=== PATIENT | male | born 1990 ===

== ENCOUNTER 2018-04-30 09:43 | Emergency (ER) | payer SELFPAY ==
[2018-04-30 09:44] VITALS: BMI 25.0
[2018-04-30 10:00] VITALS: RESP 18; O2SAT 98
[2018-04-30] MEDS ORDERED: Bacitracin 500 Units/gm Oint Foilpak UD ONE (10:40)
--- NOTE | 2018-04-30 10:52 | ED PDOC ---
Arrival/HPI - General Chief Complaint: Abnormal Skin Integrity Time Seen by Provider: 04/30/18 10:45 Historian: Patient - History of Present Illness Narrative History of Present Illness (Text): 04/30/18 10:49 28yo male who present to ED with scalp laceration. States he sustained the laceration when the edge of his car [place] hit his head this morning. denies LOc, nausea, vomiting, visual changes, any other complaint. Past Medical History - Provider Review Nursing Documentation Reviewed: Yes - Infectious Disease Hx of Infectious Diseases: None - Psychiatric Hx Depression: No Hx Emotional Abuse: No Hx Physical Abuse: No Hx Substance Use: Yes (CANNABIS) - Anesthesia Hx Anesthesia: No - Suicidal Assessment Feels Threatened In Home Enviroment: No Family/Social History - Physician Review Nursing Documentation Reviewed: Yes Family/Social History: Unknown Family HX Smoking Status: Current Some Days Smoker Hx Alcohol Use: Yes (SOCIAL) Hx Substance Use: Yes (CANNABIS) Allergies/Home Meds Allergies/Adverse Reactions: Allergies No Known Allergies Allergy (Verified 04/30/18 10:22) Home Medications: Home Meds Medication Instructions Recorded Confirmed No Known Home Med 04/02/12 04/30/18 Review of Systems - Physician Review All systems were reviewed & negative as marked: Yes - Review of Systems Constitutional: Normal Eyes: Normal ENT: Normal Respiratory: Normal Cardiovascular: Normal Gastrointestinal: Normal Genitourinary Male: Normal Musculoskeletal: Normal Skin: Laceration (scalp) Neurological: Normal Endocrine: Normal Hemo/Lymphatic: Normal Psychiatric: Normal Physical Exam Vital Signs Reviewed: Yes Vital Signs Temp Pulse Resp BP Pulse Ox 04/30/18 09:59 98.5 F 95 H 18 141/89 98 Temperature: Afebrile Blood Pressure: Normal Pulse: Regular Respiratory Rate: Normal Appearance: Positive for: Well-Appearing, Non-Toxic, Comfortable Pain Distress: None Mental Status: Positive for: Alert and Oriented X 3 - Systems Exam Head: Present: Atraumatic, Normocephalic Pupils: Present: PERRL Extroacular Muscles: Present: EOMI Conjunctiva: Present: Normal Mouth: Present: Moist Mucous Membranes Neck: Present: Normal Range of Motion Respiratory/Chest: Present: Clear to Auscultation, Good Air Exchange. No: Respiratory Distress, Accessory Muscle Use Cardiovascular: Present: Regular Rate and Rhythm, Normal S1, S2. No: Murmurs Abdomen: No: Tenderness, Distention, Peritoneal Signs Back: Present: Normal Inspection Upper Extremity: Present: Normal Inspection. No: Cyanosis, Edema Lower Extremity: Present: Normal Inspection. No: Edema Neurological: Present: GCS=15, CN II-XII Intact, Speech Normal Skin: Present: Warm, Dry, Normal Color, Laceration (4.0cm linear laceration on frontal scalp). No: Rashes Psychiatric: Present: Alert, Oriented x 3, Normal Insight, Normal Concentration Procedure: Wound Repair - Consent Obtained Consent obtained: Verbal - Performed by Performed by: Mid-level Provider - Indications Indication(s):: Laceration - Location Location:: Scalp Shape:: Linear Dimensions Length cm: 4.0 - Anesthetic Technique Anesthetic Technique: Oral pain medication (tylenol 650mg) - Debris Debris:: None - Complexity Complexity:: Intermediate (2 layer) - Wound repair method Nabor:: Tissue glue (7) - Muscle repiar layer closed with Muscle repair layer closed with:: Wound well approximated, Abx ointment applied, Dressing applied, Tetanus ordered - Patient tolerated procedure Patient Tolerated Procedure:: Well Disposition/Present on Arrival - Present on Arrival Any Indicators Present on Arrival: No History of DVT/PE: No History of Uncontrolled Diabetes: No Urinary Catheter: No History of Decub. Ulcer: No History Surgical Site Infection Following: None - Disposition Have Diagnosis and Disposition been Completed?: Yes Diagnosis: Scalp laceration Disposition: HOME/ ROUTINE Disposition Time: 10:55 Patient Plan: Discharge Condition: STABLE Discharge Instructions (ExitCare): Laceration Repair, Laceration Repair With Nabor (DC) Additional Instructions: Keep wound clean and dry Return to ED or follow up with your Doctor in 7days for staple removal Return to Ed for any new symptoms Referrals: Marian De Jesus MD [Medical Doctor] - Follow up with primary
[2018-04-30] MEDS ORDERED: TDAP Vaccine 0.5 mL Syr IM ONE (10:53)
[2018-04-30 11:13] VITALS: BP 132/78; PULSE 89; TEMP 98.2
== END 2018-04-30 11:17 | disposition home or self-care (01) ==
LOC: ED 09:43
DX: S01.01XA Laceration without foreign body of scalp, initial encounter (principal); W22.8XXA Striking against or struck by other objects, initial encounter; Y92.9 Unspecified place or not applicable